=== PATIENT | female | born 1975 | race Caucasian/White ===

== ENCOUNTER 2018-03-26 18:59 | Emergency (ER) | payer BC ==
[2018-03-26] MEDS ORDERED: ZOLOFT25 M1 PO (19:07)
[2018-03-26] MEDS ORDERED: CYCLOBENZAPRINE10 M1 PO (20:45)
[2018-03-26] MEDS ORDERED: NORCO 325 MG-51 TA1 PO (20:45)
[2018-03-26 20:54] VITALS: BP 120/80
== END 2018-03-26 20:54 | disposition home or self-care (01) ==
LOC: ED 18:59
DX: M54.5 Low back pain (principal); Z79.899 Other long term (current) drug therapy
CPT/HCPCS: J1885; J2360